=== PATIENT | male | born 1980 | race Caucasian/White ===

== ENCOUNTER → 2021-08-29 | Outpatient (CLI) | payer OTHER ==
[2021-08-29 08:35] LABS: HEMOGLOBIN 13.8 gm/dl (14.0-17.5); RED BLOOD COUNT 4.54 M/UL (4.20-5.50); WHITE BLOOD COUNT 9.8 K/UL (4.5-11.0)
[2021-08-29 08:59] LABS: BUN/CREATININE RATIO 31 (0-10)
== END ==
LOC: ECHO 08:07
PROVIDERS: Internal Medicine Cardiovascular Disease
DX: R94.31 Abnormal electrocardiogram [ECG] [EKG] (principal)
CPT/HCPCS: ECHO; 36415; 80053; 80061; 83735; 84439; 84443; 85025; 93306